=== PATIENT | male | born 1980 | race Caucasian/White ===

== ENCOUNTER 2025-08-08 16:18 | Emergency (ER) | payer SELFPAY ==
[~2025-08-08] VITALS: Ht 170.2 cm; Wt 79.5 kg
[2025-08-08 17:55] VITALS: TEMP 98.2
[2025-08-08 18:18] LABS: PLATELET COUNT (AUTO) 302 K/uL (150-450); RED BLOOD CELL COUNT(AUTO) 5.41 MIL/uL (4.50-5.90); RED CELL DISTRIBUTION WIDTH 13.8 % (11.5-14.5); WHITE BLOOD COUNT (AUTO) 17.1 K/uL (4.5-11.0)
[2025-08-08 18:31] LABS: CALCIUM, TOTAL 8.1 mg/dL (8.8-10.5); CREATININE 0.39 mg/dL (0.60-1.30); GLOMERULAR FILTR. RATE CALC > 60 mL/min (>60); GLUCOSE,RANDOM 108 mg/dL (70-110); SODIUM SERUM 134 mmol/L (136-145); UREA NITROGEN, BLOOD 7 mg/dL (7-18)
[2025-08-08] MEDS: SODIUM CHLORIDE 0.9% 1,000 ML IV ONE (18:33)
[2025-08-08] MEDS: LevETIRAcetam 1,000 MG in DEXTROSE 5%-WATER 100 ML IV ONE (18:33)
[2025-08-08 18:36] LABS: ASPARTATE AMINOTRANSFERASE 71 U/L (15-37); TOTAL PROTEIN, SERUM 6.7 g/dL (6.4-8.2)
[2025-08-08 18:40] LABS: TROPONIN I-HIGH SENSITIVITY 25 ng/L (<76)
[2025-08-08 18:45] LABS: ALCOHOL, BLOOD (SERUM) < 3 mg/dL (0-10)
[2025-08-08 20:54] LABS: PH,URINE DRUG SCREEN 7.0 (5.0-8.0)
[2025-08-08 21:00] LABS: ALCOHOL, URINE DRUG SCREEN NEGATIVE (NEGATIVE); AMPHET/METH SCREEN,URINE NEGATIVE (NEGATIVE); BARBITURATE SCREEN, URINE NEGATIVE (NEGATIVE); CANNABINOID SCREEN,URINE NEGATIVE (NEGATIVE); COCAINE SCREEN,URINE NEGATIVE (NEGATIVE); METHADONE SCREEN, URINE NEGATIVE (NEGATIVE)
[2025-08-08 21:11] VITALS: BP 134/78; PULSE 90; RESP 16; O2SAT 98
== END 2025-08-08 22:01 | disposition home or self-care (01) ==
LOC: EMS 16:18
DX: R56.9 Unspecified convulsions (principal)
CPT/HCPCS: 99285; 70450; 96365; 71045; 96361; 80048; 80076; 84484; 85025; 36415; 72125; 93005; 80307; J0712; G0480; J7060; J7030